=== PATIENT | female | born 1940 | race Two or more races ===

== ENCOUNTER → 2019-02-12 | Outpatient (CLI) | payer OTHER | END | disposition home or self-care (01) | LOC: NUCLEAR 09:00 | DX: R91.8 Other nonspecific abnormal finding of lung field (principal); R91.1 Solitary pulmonary nodule | CPT/HCPCS: 78815; A9552 ==

== ENCOUNTER → 2021-04-03 | Outpatient (CLI) | payer OTHER | END | disposition home or self-care (01) | LOC: NUCLEAR 07:00 | PROVIDERS: ATTEND Internal Medicine Cardiovascular Disease | DX: I70.0 Atherosclerosis of aorta (principal); I25.10 Atherosclerotic heart disease of native coronary artery without angina pectoris; I50.1 Left ventricular failure, unspecified; I11.9 Hypertensive heart disease without heart failure; E78.2 Mixed hyperlipidemia | CPT/HCPCS: 78452; 93017; A9500; J0153 ==

== ENCOUNTER 2024-07-29 16:16 | Inpatient (IN) | payer OTHER ==
[~2024-07-29] VITALS: Ht 165.1 cm; Wt 59.0 kg
[2024-07-29] MEDS ORDERED: DEXTROSE 5 % AND 0.9 % NACL 1,000 ML IV STA (16:49)
[2024-07-29] MEDS ORDERED: HYOSCYAMINE SULFATE 0.125 MG TAB.SUBL SL ONE (17:00)
[2024-07-29 17:13] LABS: HEMATOCRIT 41.1 % (36.0-45.00); HEMOGLOBIN 13.6 g/dL (12.0-15.00); MEAN CELL VOLUME 92.4 fL (80.00-100.00); MEAN CORPUSCULAR HEMOGLOBIN 30.7 pg (27.00-32.0); MEAN CORPUSCULAR HGB CONC 33.2 g/dl (32.0-36.0); PLATELET COUNT 255 K/uL (150-450); RED BLOOD COUNT 4.45 M/uL (4.00-6.00); RED CELL DISTRIBUTION WIDTH 14.1 % (11.5-14.5)
[2024-07-29 17:32] LABS: PARTIAL THROMBOPLASTIN TIME 25.1 SECONDS (22.0-34.0); PROTHROMBIN TIME 10.9 SECONDS (9.0-11.5)
[2024-07-29 17:40] LABS: ALBUMIN 3.8 gm/dL (3.4-5.0); BILIRUBIN TOTAL 0.66 mg/dL (0.3-1.2); CALCIUM 9.8 mg/dL (8.5-10.1); CREATININE SERUM 0.74 mg/dL (0.55-1.02); GFR 75.32; GLOBULINA 3.6 G/DL (2.4-3.5); POTASSIUM 3.64 mEq/L (3.5-5.1); TOTAL PROTEIN 7.4 gm/dL (6.4-8.2)
[2024-07-29] MEDS ORDERED: METRONIDAZOLE/SODIUM CHLORIDE 100 ML IV SCH (21:11)
[2024-07-29] MEDS ORDERED: CIPROFLOXACIN IN 5 % DEXTROSE 200 ML IV SCH (21:11)
[2024-07-29 21:12] LABS: URINE APPEARANCE Clear; URINE BILIRRUBIN Negative (NEGATIVE); URINE BLOOD Negative; URINE COLOR Yellow; URINE GLUCOSE Negative (NEGATIVE); URINE KETONE Negative (NEGATIVE); URINE LEUKOCYTE Small; URINE NITRATE Negative; URINE PROTEIN Negative (NEGATIVE); URINE UROBILINOGEN 0.2 E.U./dl
[2024-07-29] MEDS ORDERED: PANTOPRAZOLE SODIUM 40 MG/VIAL VIAL IV SCH (21:13)
[2024-07-29] MEDS ORDERED: ENALAPRILAT DIHYDRATE 1.25 MG/ML VIAL IV PRN (21:15)
[2024-07-29] MEDS ORDERED: 0.9 % SODIUM CHLORIDE 1,000 ML IV SCH (21:15)
[2024-07-29 21:18] LABS: URINE BACTERIA 2747.2 uL (0.0-1933); URINE EPITHELIAL CELLS 20.4 uL (0.0-38.8); URINE RBC 3.5 uL (0.0-20.8); URINE WBC 34.8 uL (0.0-23.2)
[2024-07-30 08:31] VITALS: BP 122/68; O2SAT 95
[2024-07-30] MEDS ORDERED: GUAIFENESIN 200 MG/10 ML BLIST.PACK PO ONE (09:45)
[2024-07-30 11:15] LABS: FECAL LEUKOCYTES NEGATIVE (NEGATIVE)
[2024-07-30 15:00] VITALS: BP 175/85; O2SAT 98
[2024-07-30 19:00] VITALS: BP 153/77; O2SAT 98
[2024-07-31] VITALS: BP 121/61; O2SAT 96
[2024-07-31 05:06] LABS: HEMATOCRIT 39.1 % (36.0-45.00); HEMOGLOBIN 13.1 g/dL (12.0-15.00); MEAN CELL VOLUME 92.6 fL (80.00-100.00); MEAN CORPUSCULAR HGB CONC 33.5 g/dl (32.0-36.0); PLATELET COUNT 241 K/uL (150-450); RED BLOOD COUNT 4.23 M/uL (4.00-6.00)
[2024-07-31 05:33] LABS: ALBUMIN 3.4 gm/dL (3.4-5.0); ALKALINE PHOSPHATASE 48 U/L (50-136); ALT/SGPT 16 U/L (12-78); ANION GAP 10 (10.0-20.0); AST/SGOT 18 U/L (15-37); BILIRUBIN TOTAL 0.64 mg/dL (0.3-1.2); BLOOD UREA NITROGEN 10 mg/dL (7-18); BUN CREA RATIO 12 (7.0-25.0); CALCIUM 8.9 mg/dL (8.5-10.1); CARBON DIOXIDE 31 mEq/L (21-32); CHLORIDE 106 mmol/L (98-107); CREATININE SERUM 0.83 mg/dL (0.55-1.02); GFR 65.98; GLOBULINA 2.9 G/DL (2.4-3.5); GLUCOSE FASTING 95 mg/dL (65-100); OSMOLALITY SERUM 284 MOSM/KG (275-295); PHOSPHOROUS 4.5 mg/dL (2.5-4.9); POTASSIUM 3.78 mEq/L (3.5-5.1); SODIUM 143 mmol/L (136-145); TOTAL PROTEIN 6.3 gm/dL (6.4-8.2)
[2024-07-31 05:39] LABS: C-REACTIVE PROTEIN < 0.29 MG/DL (0.00-0.29)
[2024-07-31 08:25] VITALS: BP 136/74; O2SAT 97
[2024-07-31 16:00] VITALS: BP 155/70; O2SAT 95
[2024-08-01 00:35] VITALS: BP 122/61; O2SAT 98
[2024-08-01 08:00] VITALS: BP 160/71; O2SAT 98
[2024-08-01 10:00] LABS: URINE APPEARANCE Clear; URINE BILIRRUBIN Negative (NEGATIVE); URINE BLOOD Negative; URINE COLOR Yellow; URINE GLUCOSE Negative (NEGATIVE); URINE KETONE Negative (NEGATIVE); URINE LEUKOCYTE Trace; URINE NITRATE Negative; URINE PROTEIN Negative (NEGATIVE); URINE UROBILINOGEN 0.2 E.U./dl
[2024-08-01 10:03] LABS: URINE BACTERIA 19.5 uL (0.0-1933); URINE EPITHELIAL CELLS 2.3 uL (0.0-38.8); URINE RBC 4.1 uL (0.0-20.8); URINE WBC 4.5 uL (0.0-23.2)
[2024-08-01] MEDS ORDERED: FUROsemide 40 MG/4 ML VIAL IV STA (12:09)
[2024-08-01] MEDS ORDERED: CIPRO500 MG PO (12:14)
[2024-08-01] MEDS ORDERED: GERI-TUSSI100 MG/5 M PO (12:14)
[2024-08-01] MEDS ORDERED: FLAGYL375 MG PO (12:14)
[2024-08-01] MEDS ORDERED: HYZAAR 50-12.51 EACH PO (12:15)
[2024-08-01] MEDS ORDERED: MIRALAX17 GM PO (12:15)
[2024-08-01] MEDS ORDERED: NASAL MIST126 ML NASAL (12:15)
[2024-08-01 13:00] VITALS: BP 166/86; O2SAT 95
== END 2024-08-01 13:45 | disposition home or self-care (01) | DRG 392 ==
LOC: ER 16:19 → SEC-K 22:01 → MEDI 07-30 11:32 → SURH 07-30 16:10
PROVIDERS: General Practice; Internal Medicine Infectious Disease; ADMIT Internal Medicine; ATTEND Internal Medicine
PROC: BW21ZZZ Computerized Tomography (CT Scan) of Abdomen and Pelvis (ICD-10-PCS; principal; 2024-07-29)
PROC: BW21YZZ Computerized Tomography (CT Scan) of Abdomen and Pelvis using Other Contrast (ICD-10-PCS; 2024-07-30)
DX: K57.92 Diverticulitis of intestine, part unspecified, without perforation or abscess without bleeding (principal); K92.1 Melena; K52.9 Noninfective gastroenteritis and colitis, unspecified; I10 Essential (primary) hypertension

== ENCOUNTER 2024-10-01 06:41 | Day surgery (SDC) | payer OTHER ==
[~2024-10-01 06:41] MED LIST: CIPRO500 MG PO; FLAGYL375 MG PO; GERI-TUSSI100 MG/5 M PO; HYZAAR 50-12.51 EACH PO; MIRALAX17 GM PO; NASAL MIST126 ML NASAL
== END 2024-10-01 11:20 | disposition home or self-care (01) ==
LOC: AMB-ENDOS 06:41
PROVIDERS: ATTEND Internal Medicine
DX: D12.2 Benign neoplasm of ascending colon (principal); D12.3 Benign neoplasm of transverse colon; D12.4 Benign neoplasm of descending colon; K57.30 Diverticulosis of large intestine without perforation or abscess without bleeding